=== PATIENT | female | born 1980 | race Caucasian/White ===

== ENCOUNTER 2016-10-12 12:00 | Outpatient (CLI) | payer OTHER ==
--- NOTE | 2016-10-12 14:31 | DIAGNOSTIC IMAGING REPORT ---
PROCEDURE: US COMPLETE PELVIC W/TRANSVAG INDICATION: ABNORMAL UTERINE BLEEDING TECHNIQUE: Transabdominal and endovaginal hill scale and color Doppler sonographic images of the female pelvis were obtained. COMPARISON: None. FINDINGS: TRANSABDOMINAL SCANS: Anteverted uterus. Normal kidneys. No pelvic mass or free fluid. TRANSVAGINAL SCANS: Uterus measures 6.5 x 4.2 x 5 cm. Myometrium is unremarkable. Endometrium measures 2.6 mm. Right ovary measures 3.3 x 2.7 x 2.3 cm with an 11 mm follicle. Left ovary measures 3.1 x 2.6 x 1.3 cm with small peripheral follicles. Vascular flow to both ovaries. No adnexal mass or free fluid in the cul-de-sac. IMPRESSION: 1. Normal pelvic ultrasound.
[2016-11-05] MEDS ORDERED: VENLAFAXINE HCL75 MG PO (15:27)
[2016-11-05] MEDS ORDERED: CITALOPRAM HYDR10 MG PO (15:28)
== END 2016-10-12 23:00 ==
LOC: US SRH 12:00
DX: N93.9 Abnormal uterine and vaginal bleeding, unspecified (principal)

== ENCOUNTER → 2016-11-07 | Outpatient (CLI) | payer OTHER ==
[~2016-11-07] MED LIST: CITALOPRAM HYDR10 MG PO; PERCOCET1 TA1 PO; VENLAFAXINE HCL75 MG PO
== END ==
LOC: LAB SRH 11:22
DX: Z01.818 Encounter for other preprocedural examination (principal); N93.9 Abnormal uterine and vaginal bleeding, unspecified
CPT/HCPCS: 90001; 90004; 90047; 90074; 90155; 90364; 90469; 91004; 92863; 93070; 95059

== ENCOUNTER 2016-11-09 07:03 | Day surgery (SDC) | payer OTHER ==
--- NOTE | 2016-11-03 12:09 | HISTORY AND PHYSICAL ---
ADMITTED: 11/09/2016 CHIEF COMPLAINT: 1. Pelvic pain and menorrhagia HISTORY OF PRESENT ILLNESS: The patient has been seen on multiple visits to my Dr. Oropeza and myself, discussed multiple options for pelvic pain and menorrhagia, abnormal uterine bleeding. The patient has had section x2, first was a 9 pound 1 ounce and has persistent complaints. She had a tubal ligation performed as well with the second section. Endometrial biopsy was performed which was negative. Colposcopy was done in the past for SONY-1. MEDICAL/SURGICAL HISTORY: The patient has mild anxiety, seeing Dr. Tay in [place] with venlafaxine and citalopram and treatment for depression and anxiety. Informed consent and risks and benefits were given to the patient. Menstrual history: Onset age 11. Obstetric history: As noted. section in 2006 and 2009. First one was for macrosomia 9 pounds 1 ounce, second section had a tubal ligation. Surgical history: and tubal ligation. Endometrial biopsy, colposcopy. Medical History: Negative. PCP: Dr. Tay. MEDICATIONS: 1. Listed as Venlafaxine 75 mg per day. 2. Citalopram 10 mg daily. ALLERGIES: 1. NONE. SOCIAL HISTORY: Negative for smoking drinking, drugs. FAMILY HISTORY: Not significant. Diabetes and hypertension in mother and father, elevated cholesterol in father. REVIEW OF SYSTEMS: Alert and oriented x3. Genitourinary: Purpose for surgery. Cardiovascular: No shortness of breath or chest pain. Gastrointestinal: Normal daily bowel movements. PHYSICAL EXAMINATION: VITAL SIGNS: BMI over 40, 239 pounds, 5 feet 1 inch. Blood pressure 110/64. HEENT: Grossly intact. SKIN/HAIR/INTEGUMENT: Normal. BREASTS: Exam not done. LUNGS: Clear. HEART: Regular rate and rhythm. ABDOMEN: Obese, nontender. EXTREMITIES: No significant clubbing, cyanosis, erythema or edema. PELVIC: Deferred today, normal previously. RECTAL: declined. LAB/IMAGING: Pending. IMPRESSION: 1. Abnormal uterine bleeding and pelvic pain in a female. PLAN: Hysteroscopy, D&C with hydrothermal ablation using [employer] system. Informed consent: Risks, benefits given above. Possibility of perforation of uterus with previous weakened scar area, damage to pelvic and nonpelvic organs requiring additional surgery, possibility of blood loss leading to transfusion, ICU stay, intubation, coma and consistent with risk of a motor vehicle accident. The patient understands and accepts.
[~2016-11-09] VITALS: Ht 154.9 cm; Wt 109.6 kg
[~2016-11-09 07:03] MED LIST changes: -PERCOCET1 TA1 PO
[2016-11-09] MEDS ORDERED: PERCOCET1 TA1 PO (10:11)
--- NOTE | 2016-11-09 10:13 | Provider's Discharge Care Plan ---
Problem, Goal, Plan Problem List 1. Post-op pain Goals: Improve disease control Instructions: Follow up as needed
--- NOTE | 2016-11-09 10:13 | Provider's Discharge Care Plan ---
Problem, Goal, Plan Problem List 1. Post-op pain Goals: Improve disease control Instructions: Follow up as needed
--- NOTE | 2016-11-09 11:25 | OPERATIVE REPORT ---
DATE OF SURGERY: 11/09/2016 SURGEON: Varun Damico MD FORMAL WEAR RENTAL CLERK: None. PREOPERATIVE DIAGNOSES: 1. Abnormal uterine bleeding 2. Pelvic pain POSTOPERATIVE DIAGNOSES: 1. Abnormal uterine bleeding 2. Pelvic pain 3. Endometrial polyps PROCEDURES PERFORMED: 1. Dilatation with curettage 2. Hysteroscopy 3. Hydrothermal ablation using the Tonya II type system, [employer] ANESTHESIA: Ciera, SUPERVISOR BODY ASSEMBLY, general. COMPLICATIONS: None. CONDITION: Good. ESTIMATED BLOOD LOSS: Less than 5 mL, minimal. FLUIDS: See anesthesia. No blood. DRAINS: See anesthesia. IMPLANTS/GRAFTS: None. PATHOLOGY SPECIMEN: Post thermal ablation endometrial polyp curettings from the right lateral wall. SURGICAL FINDINGS: Normal uterine lining, slightly enlarged uterus, with polyps on the left lateral wall, near the endocervix. SURGICAL TECHNIQUE: The patient had a time-out performed, after being prepped and draped in the usual fashion. Anesthesia was adequate. Speculum was placed, after she was put in the dorsal lithotomy position. The cervix was easily identified. Single-toothed tenaculum was applied. The uterus sounded to 9 cm. There was gradual dilatation up to 7-8 mm. The hydrothermal [employer] equipment was inserted without difficulty, and pictures were taken of the right and left cornual areas and the midline. There was a polyp noted on the right lateral wall. Procedure was started and went through its 10 minute procedure, with no fluid loss. After the procedure, a curette #8 size was used to scrape the right lateral wall. The thermal ablated tissue was put in as specimen and sent to Pathology. The instruments were removed, and there was no bleeding on the cervix. Sponge, needle, tape and instrument count was correct x2. The patient tolerated the procedure well and went to recovery room in good condition.
--- NOTE | 2016-11-09 11:25 | OPERATIVE REPORT ---
DATE OF SURGERY: 11/09/2016 SURGEON: Varun Damico MD ACID CONCENTRATOR: None. PREOPERATIVE DIAGNOSES: 1. Abnormal uterine bleeding 2. Pelvic pain POSTOPERATIVE DIAGNOSES: 1. Abnormal uterine bleeding 2. Pelvic pain 3. Endometrial polyps PROCEDURES PERFORMED: 1. Dilatation with curettage 2. Hysteroscopy 3. Hydrothermal ablation using the Tonya II type system, [employer] ANESTHESIA: Ciera, SECONDARY MARKET MANAGER, general. COMPLICATIONS: None. CONDITION: Good. ESTIMATED BLOOD LOSS: Less than 5 mL, minimal. FLUIDS: See anesthesia. No blood. DRAINS: See anesthesia. IMPLANTS/GRAFTS: None. PATHOLOGY SPECIMEN: Post thermal ablation endometrial polyp curettings from the right lateral wall. SURGICAL FINDINGS: Normal uterine lining, slightly enlarged uterus, with polyps on the left lateral wall, near the endocervix. SURGICAL TECHNIQUE: The patient had a time-out performed, after being prepped and draped in the usual fashion. Anesthesia was adequate. Speculum was placed, after she was put in the dorsal lithotomy position. The cervix was easily identified. Single-toothed tenaculum was applied. The uterus sounded to 9 cm. There was gradual dilatation up to 7-8 mm. The hydrothermal [employer] equipment was inserted without difficulty, and pictures were taken of the right and left cornual areas and the midline. There was a polyp noted on the right lateral wall. Procedure was started and went through its 10 minute procedure, with no fluid loss. After the procedure, a curette #8 size was used to scrape the right lateral wall. The thermal ablated tissue was put in as specimen and sent to Pathology. The instruments were removed, and there was no bleeding on the cervix. Sponge, needle, tape and instrument count was correct x2. The patient tolerated the procedure well and went to recovery room in good condition.
[2016-11-09 11:52] VITALS: BP 128/91
== END 2016-11-09 12:21 | disposition home or self-care (01) ==
LOC: OR SRH 07:03 → SCU SRH 07:04 → OR SRH 09:00
PROVIDERS: Obstetrics & Gynecology
PROC: 0U5B8ZZ Destruction of Endometrium, Via Natural or Artificial Opening Endoscopic (ICD-10-PCS; principal; 2016-11-09 09:00)
PROC: 0UDB8ZX Extraction of Endometrium, Via Natural or Artificial Opening Endoscopic, Diagnostic (ICD-10-PCS; principal; 2016-11-09 09:00)
DX: N93.8 Other specified abnormal uterine and vaginal bleeding (principal); N84.0 Polyp of corpus uteri; R10.2 Pelvic and perineal pain
CPT/HCPCS: 29229; 29240; 50002; 60001; 70002; 80212; 80575; 80996; 83773